=== PATIENT | male | born 1990 | race Caucasian/White ===

== ENCOUNTER 2019-09-13 11:40 | Outpatient (CLI) | payer BC ==
--- NOTE | 2019-09-13 13:31 | RAD ---
CHEST TWO VIEWS: History: Shortness of breath, difficulty breathing. FINDINGS: Heart size is normal. The lungs are clear. No confluent pneumonia, overt edema, or pleural effusion. Borderline hyperinflation. IMPRESSION: No acute intrathoracic disease. Borderline hyperinflation. POS: C
== END 2019-09-13 11:41 | disposition home or self-care (01) ==
LOC: SCSRAD 11:40
PROVIDERS: ATTEND Internal Medicine
DX: R06.02 Shortness of breath (principal); R91.8 Other nonspecific abnormal finding of lung field; Z11.59 Encounter for screening for other viral diseases
CPT/HCPCS: 36415; 71046; 86769